=== PATIENT | male | born 1960 | race Caucasian/White ===

== ENCOUNTER 2020-08-04 06:57 | Day surgery (SDC) | payer SELFPAY ==
[~2020-08-04] VITALS: Ht 177.8 cm; Wt 61.6 kg
[2020-08-04] MEDS ORDERED: TYLENOL 500MG500 MG PO (07:35)
[2020-08-04] MEDS ORDERED: COMBIRESP IH (07:35)
[2020-08-04] MEDS ORDERED: XANAX 1MG1 MG PO (07:36)
[2020-08-04] MEDS ORDERED: NORVASC 10MG10 MG PO (07:36)
[2020-08-04] MEDS ORDERED: BUSPAR DIVIDOSE15 MG PO (07:37)
[2020-08-04] MEDS ORDERED: CALCIUM 600 MG1 EAC2 PO (07:38)
[2020-08-04] MEDS ORDERED: ASPIRIN E.C. 8181 MG PO (07:38)
[2020-08-04] MEDS ORDERED: ONE-A-DAY ESSE1 EACH PO (07:39)
[2020-08-04] MEDS ORDERED: CYMBALTA 20MG20 MG PO (07:39)
[2020-08-04] MEDS ORDERED: NEURONTIN300 MG/CAP PO (07:39)
[2020-08-04] MEDS ORDERED: MICARDIS40 MG PO (07:40)
[2020-08-04] MEDS ORDERED: PROTONIX 40MG T40 MG PO (07:40)
[2020-08-04] MEDS ORDERED: ZOFRAN ODT4 MG PO (07:40)
[2020-08-04 07:41] VITALS: BP 129/56; PULSE 77; TEMP 98.4
[2020-08-04] MEDS ORDERED: RT SPIRIVA18 MCG IH (07:41)
[2020-08-04] MEDS ORDERED: DESYREL 50MG50 MG PO (07:41)
[2020-08-04 08:45] VITALS: BP 111/52; PULSE 100
--- NOTE | 2020-08-04 08:45 | NUR ---
Pt to [facility] via cart from [facility]. Pt drowsy,but awake. Pt ambulates to recliner with stand by assistance. Warm blanket provided. at side. [employer] given per pt request. Pt denies need for food. Will continue to monitor. Call light within reach.
[2020-08-04 09:00] VITALS: BP 144/80; PULSE 90
--- NOTE | 2020-08-04 09:00 | NUR ---
Pt continues to rest. Denies needs. Call light within reach.
--- NOTE | 2020-08-04 09:15 | NUR ---
IV site discontinued with all parts intact. Pt up to dress. Discharge instructions reviewed. Pt voices understanding. IV site discontinued with all parts intact.
--- NOTE | 2020-08-04 09:20 | NUR ---
Pt escorted to private car via wheel chair. Pt accompanied home by his .
== END 2020-08-04 09:20 | disposition home or self-care (01) ==
LOC: SDCO 06:57
DX: D12.8 Benign neoplasm of rectum (principal); K92.1 Melena; K64.1 Second degree hemorrhoids; K57.30 Diverticulosis of large intestine without perforation or abscess without bleeding; Z86.010 Personal history of colon polyps; Z88.8 Allergy status to other drugs, medicaments and biological substances; Z79.82 Long term (current) use of aspirin; J44.9 Chronic obstructive pulmonary disease, unspecified; K21.9 Gastro-esophageal reflux disease without esophagitis; I10 Essential (primary) hypertension; G89.29 Other chronic pain; F32.9 Major depressive disorder, single episode, unspecified; F41.9 Anxiety disorder, unspecified; M19.90 Unspecified osteoarthritis, unspecified site
CPT/HCPCS: J2704; J7030